=== PATIENT | female | born 1950 | race Caucasian/White ===

== ENCOUNTER 2016-11-09 18:24 | Inpatient (IN) | payer OTHER ==
[~2016-11-09] VITALS: Ht 152.4 cm; Wt 49.0 kg
[2016-11-09 19:22] LABS: HEMOGLOBIN 13.3 g/dL (11.7-16.4)
[2016-11-09] MEDS ORDERED: SODIUM CHLORIDE FLUSH 10ML SYR IVF ONE (19:30)
[2016-11-09] MEDS ORDERED: LORazepam 2 MG/ML, 1ML IVPush ONE ×2 (19:30→20:30)
[2016-11-09] MEDS ORDERED: SODIUM CHLORIDE 0.9% 1,000ML IVBOLUS ONE (19:30)
[2016-11-09] MEDS ORDERED: ALBUTEROL SULFATE 2.5 MG/3 ML NPPB ONE (19:30)
[2016-11-09] MEDS ORDERED: methylPREDNISolone SOD SUCC 125 MG/2 ML IVP ONE (19:30)
[2016-11-09 19:36] LABS: BLOOD UREA NITROGEN 22 mg/dL (7-18)
[2016-11-09] MEDS ORDERED: ALBUTEROL SULFATE 2.5 MG/3 ML ONE (19:44)
[2016-11-09 20:02] LABS: IS PT STATUS REG ER OR PRE ER? YES
[2016-11-09] MEDS ORDERED: ASPIRIN 81 MG TABLET CHEW PO ONE (20:30)
[2016-11-09] MEDS ORDERED: ENALAPRILAT 1.25 MG/ML, 2ML ONE (20:30)
[2016-11-09] MEDS ORDERED: ENALAPRILAT 1.25 MG/ML, 2ML IV ONE (20:30)
[2016-11-09] MEDS ORDERED: LORazepam 2 MG/ML, 1ML ONE (20:31)
[2016-11-09] MEDS ORDERED: ASPIRIN 81 MG TABLET CHEW ONE (20:31)
[2016-11-09] MEDS ORDERED: CEFD300C2 PO (20:57)
[2016-11-09] MEDS ORDERED: IPRA3AMP INH (20:57)
[2016-11-09] MEDS ORDERED: IBUP800T PO (20:57)
[2016-11-09] MEDS ORDERED: SENN-109 PO (20:57)
[2016-11-09] MEDS ORDERED: DOXY100C15 PO (20:57)
[2016-11-09] MEDS ORDERED: ACETAMINOPHEN 325 MG TABLET PO PRN (21:00)
[2016-11-09] MEDS: SODIUM CHLORIDE FLUSH 10ML SYR IVF SCH (21:00)
[2016-11-09] MEDS ORDERED: POLYETHYLENE GLYCOL 17 GM PACKET PO PRN (21:00)
[2016-11-09] MEDS ORDERED: DOCUSATE 100 MG CAPSULE PO PRN (21:00)
[2016-11-09] MEDS ORDERED: GUAIFENESIN/DM 200-20MG, 10ML UDC PO PRN (21:00)
[2016-11-09] MEDS ORDERED: FUROSEMIDE 20 MG/2 ML IV ONE (21:00)
[2016-11-09] MEDS ORDERED: MORPHINE SULFATE 4 MG/ML, 1ML IVPush PRN (21:00)
[2016-11-09] MEDS: INSULIN REGULAR 100 UNITS/ML, 3ML VIAL SQ-INSULIN SCH (21:00)
[2016-11-09] MEDS: ENOXAPARIN 40 MG/0.4 ML SQ SCH (21:00)
[2016-11-09] MEDS ORDERED: POTASSIUM CHLORIDE 20 MEQ TAB.ER.PRT ONE (22:32)
[2016-11-09] MEDS ORDERED: FUROSEMIDE 20 MG/2 ML ONE (22:32)
[2016-11-09] MEDS: POTASSIUM CHLORIDE 20 MEQ TAB.ER.PRT PO SCH (22:35)
[2016-11-09 23:27] VITALS: BP 153/98
[2016-11-10] MEDS: NICOTINE 7 MG/24 HR PATCH.TD24 TD SCH ×2 (00:46→21:02)
[2016-11-10] MEDS: CEFTRIAXONE PMX 1GM/50ML 50 ML IV SCH ×2 (00:47)
[2016-11-10] MEDS: DOXYCYCLINE 100 MG in DEXTROSE 5% 250 ML IV SCH ×2 (01:54→13:34)
[2016-11-10 03:04] VITALS: BP 147/94
[2016-11-10 03:18] VITALS: BP 153/98
[2016-11-10] MEDS ORDERED: OMNIPAQUE 350 MG/ML, 100ML BOTTLE ONE (04:44)
[2016-11-10] MEDS: ASPIRIN 325 MG TABLET EC PO SCH (05:31)
[2016-11-10] MEDS ORDERED: ALBUTEROL/IPRATROPIUM 2.5MG/0.5MG, 3 ML ONE (06:41)
[2016-11-10] MEDS: INSULIN REGULAR 100 UNITS/ML, 3ML VIAL SQ-INSULIN SCH ×4 (07:00→21:00)
[2016-11-10 07:10] LABS: IS PT STATUS REG ER OR PRE ER? NO
[2016-11-10 07:54] VITALS: BP 137/90
[2016-11-10] MEDS: SODIUM CHLORIDE FLUSH 10ML SYR IVF SCH ×2 (07:56→21:03)
[2016-11-10] MEDS: SENNA/DOCUSATE TABLET PO SCH (07:57)
[2016-11-10] MEDS: POTASSIUM CHLORIDE 20 MEQ TAB.ER.PRT PO SCH ×2 (07:57→17:41)
[2016-11-10] MEDS ORDERED: ALBUTEROL/IPRATROPIUM 2.5MG/0.5MG, 3 ML NEB SCH (09:00)
[2016-11-10] MEDS: ALBUTEROL/IPRATROPIUM 2.5MG/0.5MG, 3 ML NPPB SCH ×2 (09:00→21:00)
[2016-11-10] MEDS ORDERED: IBUPROFEN 800 MG TABLET PO SCH (09:00)
[2016-11-10] MEDS: LORazepam 2 MG/ML, 1ML IVPush PRN ×2 (13:29→21:02)
[2016-11-10 13:54] VITALS: BP 146/92
[2016-11-10] MEDS: PROPRANOLOL 20 MG TABLET PO SCH ×2 (15:06→22:10)
[2016-11-10] MEDS ORDERED: ALUMINUM/MAG/SIMETHICONE 30 ML UDC PO ONE (17:00)
[2016-11-10 19:21] VITALS: BP 92/55
[2016-11-10 19:37] VITALS: BP 135/85
[2016-11-10] MEDS: ONDANSETRON 2MG/ML, 2ML IVP PRN (20:56)
[2016-11-10] MEDS: FAMOTIDINE 20 MG TABLET PO SCH (21:02)
[2016-11-10] MEDS: HYDROcodone/APAP 5/325 TABLET PO PRN (21:02)
[2016-11-10] MEDS: ENOXAPARIN 40 MG/0.4 ML SQ SCH (21:02)
[2016-11-10] MEDS: DOXYCYCLINE 100MG TABLET PO SCH (21:03)
[2016-11-11 00:31] VITALS: BP 130/86
[2016-11-11] MEDS: CEFTRIAXONE PMX 1GM/50ML 50 ML IV SCH (00:59)
[2016-11-11] MEDS: PROPRANOLOL 20 MG TABLET PO SCH ×2 (06:09→15:21)
[2016-11-11] MEDS: ASPIRIN 325 MG TABLET EC PO SCH (06:09)
[2016-11-11] MEDS: INSULIN REGULAR 100 UNITS/ML, 3ML VIAL SQ-INSULIN SCH ×4 (07:00→20:57)
[2016-11-11 07:17] VITALS: BP 119/85
[2016-11-11] MEDS: ALBUTEROL/IPRATROPIUM 2.5MG/0.5MG, 3 ML NPPB SCH ×2 (07:25→19:50)
[2016-11-11] MEDS: SODIUM CHLORIDE FLUSH 10ML SYR IVF SCH ×2 (07:45→20:59)
[2016-11-11] MEDS: POTASSIUM CHLORIDE 20 MEQ TAB.ER.PRT PO SCH ×2 (07:45→18:07)
[2016-11-11] MEDS: FAMOTIDINE 20 MG TABLET PO SCH ×2 (07:46→20:59)
[2016-11-11] MEDS: FUROSEMIDE 40 MG TABLET PO SCH (07:46)
[2016-11-11] MEDS: DOXYCYCLINE 100MG TABLET PO SCH ×2 (07:47→20:59)
[2016-11-11] MEDS: SENNA/DOCUSATE TABLET PO SCH (07:47)
[2016-11-11] MEDS ORDERED: REGADENOSON 0.4 MG/5 ML SYRINGE ONE (10:00)
[2016-11-11 12:44] VITALS: BP 125/86
[2016-11-11] MEDS: ONDANSETRON 2MG/ML, 2ML IVP PRN (18:06)
[2016-11-11] MEDS: CARVEDILOL 3.125 MG TABLET PO SCH (18:07)
[2016-11-11 19:41] VITALS: BP 113/75
[2016-11-11] MEDS: NICOTINE 7 MG/24 HR PATCH.TD24 TD SCH (21:00)
[2016-11-11] MEDS: ENOXAPARIN 40 MG/0.4 ML SQ SCH (21:00)
[2016-11-12 01:13] VITALS: BP 102/56
[2016-11-12] MEDS: CEFTRIAXONE PMX 1GM/50ML 50 ML IV SCH (01:47)
[2016-11-12] MEDS: ASPIRIN 325 MG TABLET EC PO SCH (05:37)
[2016-11-12] MEDS: HYDROcodone/APAP 5/325 TABLET PO PRN (05:37)
[2016-11-12] MEDS: CARVEDILOL 3.125 MG TABLET PO SCH (05:37)
[2016-11-12 06:28] LABS: HEMOGLOBIN 15.2 g/dL (11.7-16.4)
[2016-11-12 06:34] LABS: BLOOD UREA NITROGEN 35 mg/dL (7-18)
[2016-11-12] MEDS: INSULIN REGULAR 100 UNITS/ML, 3ML VIAL SQ-INSULIN SCH ×2 (07:36→11:52)
[2016-11-12] MEDS: FAMOTIDINE 20 MG TABLET PO SCH (07:39)
[2016-11-12] MEDS: POTASSIUM CHLORIDE 20 MEQ TAB.ER.PRT PO SCH (07:39)
[2016-11-12] MEDS: FUROSEMIDE 40 MG TABLET PO SCH (07:39)
[2016-11-12] MEDS: SENNA/DOCUSATE TABLET PO SCH (07:40)
[2016-11-12] MEDS: DOXYCYCLINE 100MG TABLET PO SCH (07:40)
[2016-11-12] MEDS: SODIUM CHLORIDE FLUSH 10ML SYR IVF SCH (07:40)
[2016-11-12 07:46] VITALS: BP 115/79
[2016-11-12] MEDS ORDERED: GUAI5SYR PO (08:24)
[2016-11-12] MEDS ORDERED: AMOX1TAB61 PO (08:24)
[2016-11-12] MEDS ORDERED: PRED10TA PO (08:24)
[2016-11-12] MEDS ORDERED: LISI5TAB7 PO (08:24)
[2016-11-12] MEDS ORDERED: METH10TA6 PO (08:24)
[2016-11-12] MEDS ORDERED: ASPI-621 PO (08:24)
[2016-11-12] MEDS ORDERED: CARV3.1212 PO (08:24)
[2016-11-12] MEDS ORDERED: FURO20TA3 PO (08:24)
[2016-11-12] MEDS ORDERED: SPIR25TA3 PO (08:24)
[2016-11-12] MEDS: ALBUTEROL/IPRATROPIUM 2.5MG/0.5MG, 3 ML NPPB SCH (09:00)
[2016-11-12] MEDS ORDERED: LISINOPRIL 5 MG TABLET PO SCH (09:00)
== END 2016-11-12 16:58 | disposition home or self-care (01) | DRG 643 ==
LOC: SUATTDRO 20:34 → ED 20:36 → EDIP 20:50 → 3NE 23:24 → 4EST 11-10 15:56 → DCLOUNGE 11-12 15:08
PROVIDERS: ADMIT Family Medicine; ATTEND Family Medicine
PROC: HZ34ZZZ Individual Counseling for Substance Abuse Treatment, Interpersonal (ICD-10-PCS; principal; 2016-11-09)
DX: E05.20 Thyrotoxicosis with toxic multinodular goiter without thyrotoxic crisis or storm (principal); E43 Unspecified severe protein-calorie malnutrition; I24.8 Other forms of acute ischemic heart disease; I42.9 Cardiomyopathy, unspecified; J98.11 Atelectasis; R09.02 Hypoxemia; E87.6 Hypokalemia; F41.9 Anxiety disorder, unspecified; E11.9 Type 2 diabetes mellitus without complications; F17.210 Nicotine dependence, cigarettes, uncomplicated; I10 Essential (primary) hypertension; I34.0 Nonrheumatic mitral (valve) insufficiency; J44.9 Chronic obstructive pulmonary disease, unspecified; Z66 Do not resuscitate; Z79.82 Long term (current) use of aspirin; Z82.49 Family history of ischemic heart disease and other diseases of the circulatory system; Z86.73 Personal history of transient ischemic attack (TIA), and cerebral infarction without residual deficits; Z80.9 Family history of malignant neoplasm, unspecified; Z79.899 Other long term (current) drug therapy; Z71.41 Alcohol abuse counseling and surveillance of alcoholic
CPT/HCPCS: 36415; 71010; 71275; 76536; 78452; 80048; 82040; 82962; 83735; 83880; 84436; 84443; 84484; 85025; 85379; 85610; 93005; 93017; 93306; 94640; 96374; 96375; J0696; J1650; J1815; J2405; J2785; J7060; J7613; J7620; Q9967; A9502; C9898; J1940; J2060; J7512

== ENCOUNTER → 2017-07-16 | Outpatient (CLI) | payer OTHER ==
[~2017-07-16] MED LIST: AMOX1TAB61 PO; ASPI-621 PO; CARV3.1212 PO; CEFD300C37 PO; DOXY100C15 PO; FURO20TA3 PO; GUAI5SYR PO; IBUP-1223 PO; IPRA3AMP INH; LISI5TAB7 PO; METH10TA6 PO; PRED10TA PO; SENN-99 PO; SPIR25TA3 PO
== END | disposition home or self-care (01) ==
LOC: PETCFH 10:16
PROVIDERS: ATTEND Internal Medicine Cardiovascular Disease
DX: Z01.818 Encounter for other preprocedural examination (principal); I42.9 Cardiomyopathy, unspecified; E05.20 Thyrotoxicosis with toxic multinodular goiter without thyrotoxic crisis or storm; E04.2 Nontoxic multinodular goiter
CPT/HCPCS: 78472; A9560

== ENCOUNTER → 2017-07-29 | Outpatient (CLI) | payer OTHER | END | disposition home or self-care (01) | LOC: PETCFH 07:55 | PROVIDERS: ATTEND Surgery | DX: E05.20 Thyrotoxicosis with toxic multinodular goiter without thyrotoxic crisis or storm (principal) | CPT/HCPCS: 78013; A9516 ==

== ENCOUNTER → 2017-10-21 | Outpatient (CLI) | payer OTHER ==
[~2017-10-21] MED LIST changes: +ACET325C PO; +ASPI325T17 PO; +ATOR40TA78 PO; +CARV12.543 PO; +LOSA25TA5 PO; +MELO15TA24 PO; +METF500T4 PO; +SERT100T PO
[2017-10-21 12:06] LABS: CHLORIDE 109 mmol/L (98-107)
[2017-10-21 12:13] LABS: ALANINE AMINOTRANSFERASE 26 U/L (12-78); ALKALINE PHOSPHATASE 167 U/L (45-117); ANION GAP 6 mmol/L (5-15); BILIRUBIN,TOTAL 0.5 mg/dL (0.2-1.0); TOTAL PROTEIN 7.8 g/dL (6.4-8.2)
== END | disposition home or self-care (01) ==
LOC: STAR 10:31
PROVIDERS: ATTEND Surgery
DX: Z01.818 Encounter for other preprocedural examination (principal); R94.31 Abnormal electrocardiogram [ECG] [EKG]
CPT/HCPCS: 36415; 80053; 93005

== ENCOUNTER 2017-10-26 09:17 | Inpatient (IN) | payer OTHER ==
[2017-10-21 11:04] VITALS: BP 135/81
[~2017-10-26] VITALS: Ht 152.4 cm; Wt 59.0 kg
[2017-10-26] MEDS ORDERED: LACTATED RINGERS 1,000 ML IV SCH (09:39)
[2017-10-26] MEDS ORDERED: LIDOCAINE-MPF 1%, 2ML ONE (09:48)
[2017-10-26] MEDS ORDERED: LIDOCAINE 1%, 2ML SQ PRN (10:00)
[2017-10-26] MEDS ORDERED: MIDAZOLAM 1 MG/ML, 2ML ONE (11:02)
[2017-10-26] MEDS ORDERED: FENTANYL PF 250 MCG/5ML ONE (11:34)
[2017-10-26] MEDS ORDERED: KETAMINE 10 MG/ML, 20ML ONE ×2 (11:34→15:28)
[2017-10-26] MEDS ORDERED: GLYCOPYRROLATE 0.2MG/1ML, 5ML ONE ×2 (11:38→12:54)
[2017-10-26] MEDS ORDERED: PHENYLEPHRINE 10 MG/ML ONE (11:38)
[2017-10-26] MEDS ORDERED: OXYcodone 5 MG/5 ML ORAL.SOL UDC PO PRN ×2 (12:00→16:30)
[2017-10-26] MEDS ORDERED: ONDANSETRON 2MG/ML, 2ML IVPush PRN ×2 (12:00→16:30)
[2017-10-26] MEDS ORDERED: LABETALOL 5MG/ML, 20ML IV PRN (12:00)
[2017-10-26] MEDS ORDERED: PROMETHAZINE 12.5 MG SUPP PR PRN (12:00)
[2017-10-26] MEDS ORDERED: HYDROcodone/APAP 7.5-325MG/15ML UDC PO PRN (12:00)
[2017-10-26] MEDS ORDERED: HYDROmorphone 1 MG/ML, 1ML IV PRN (12:00)
[2017-10-26] MEDS ORDERED: PROMETHAZINE 25 MG/ML, 1ML IV PRN (12:00)
[2017-10-26] MEDS ORDERED: hydrALAzine 20 MG/ML, 1ML IV PRN ×2 (12:00→16:30)
[2017-10-26] MEDS ORDERED: ACETAMINOPHEN 325 MG TABLET PO PRN (12:00)
[2017-10-26] MEDS ORDERED: SUCCINYLCHOLINE 20 MG/ML, 10ML ONE (12:54)
[2017-10-26] MEDS ORDERED: PROPOFOL 10 MG/ML, 20ML ONE (12:54)
[2017-10-26] MEDS ORDERED: CEFAZOLIN 1,000 MG ONE (12:54)
[2017-10-26] MEDS ORDERED: NEOSTIGMINE 1 MG/ML, 10ML ONE (12:54)
[2017-10-26] MEDS ORDERED: ONDANSETRON 2MG/ML, 2ML ONE ×2 (12:54→15:51)
[2017-10-26] MEDS ORDERED: DEXAMETHASONE 4 MG/ML, 1ML ONE (12:54)
[2017-10-26] MEDS ORDERED: ROCURONIUM 10 MG/ML,10ML ONE ×3 (12:54→15:51)
[2017-10-26] MEDS ORDERED: OXYcodone 5 MG/5 ML ORAL.SOL UDC ONE (13:20)
[2017-10-26] MEDS ORDERED: ACETAMINOPHEN 650 MG/20.3 ML UDC ONE (13:20)
[2017-10-26] MEDS ORDERED: FENTANYL PF 100 MCG/2ML ONE ×2 (13:20→15:20)
[2017-10-26] MEDS: FENTANYL PF 100 MCG/2ML IV PRN ×3 (13:22→13:49)
[2017-10-26] MEDS ORDERED: LACTATED RINGERS 500 ML IVBOLUS PRN (14:30)
[2017-10-26] MEDS ORDERED: morphine SULFATE 10 MG/ML, 1ML IV PRN (14:30)
[2017-10-26] MEDS ORDERED: ONDANSETRON 2MG/ML, 2ML IV PRN (14:30)
[2017-10-26] MEDS: ASPIRIN MC SCH ×2 (15:00→23:00)
[2017-10-26] MEDS: ACETAMINOPHEN MC SCH ×2 (15:00→23:00)
[2017-10-26] MEDS ORDERED: MIDAZOLAM 1 MG/ML, 2ML IV PRN (16:30)
[2017-10-26] MEDS ORDERED: LORazepam 2 MG/ML, 1ML IVPush PRN (16:30)
[2017-10-26] MEDS ORDERED: EPHEDRINE 50 MG/ML, 1ML IVPush PRN (16:30)
[2017-10-26] MEDS ORDERED: FENTANYL PF 100 MCG/2ML IV PRN (16:30)
[2017-10-26] MEDS ORDERED: HYDROmorphone 2 MG/ML, 1ML ONE (16:44)
[2017-10-26] MEDS: HYDROmorphone 1 MG/ML, 1ML IV PRN ×2 (16:45→17:15)
[2017-10-26 18:54] LABS: ALBUMIN 3.4 g/dL (3.4-5.0); CALCIUM 8.3 mg/dL (8.5-10.1)
[2017-10-26] MEDS: CARVEDILOL 12.5 MG TABLET PO SCH (19:28)
[2017-10-26] MEDS: metFORMIN 500 MG TABLET PO SCH (19:32)
[2017-10-26] MEDS ORDERED: ATORVASTATIN 40 MG TABLET PO SCH (21:00)
[2017-10-26] MEDS: SPIRONOLACTONE 25 MG TABLET PO SCH (21:01)
[2017-10-26 21:02] VITALS: BP 137/95
[2017-10-26] MEDS: HYDROcodone/APAP 5/325 TABLET PO PRN (21:09)
[2017-10-27 00:01] VITALS: BP 115/66
[2017-10-27] MEDS: HYDROcodone/APAP 5/325 TABLET PO PRN ×3 (01:36→14:57)
[2017-10-27 01:49] LABS: ALBUMIN 3.3 g/dL (3.4-5.0); CALCIUM 8.1 mg/dL (8.5-10.1)
[2017-10-27 02:51] VITALS: BP 111/55
[2017-10-27] MEDS: CARVEDILOL 12.5 MG TABLET PO SCH (06:29)
[2017-10-27 06:37] LABS: ALBUMIN 3.3 g/dL (3.4-5.0); CALCIUM 7.8 mg/dL (8.5-10.1)
[2017-10-27 07:27] VITALS: BP 112/68
[2017-10-27] MEDS: metFORMIN 500 MG TABLET PO SCH (08:18)
[2017-10-27] MEDS: SPIRONOLACTONE 25 MG TABLET PO SCH (08:18)
[2017-10-27] MEDS ORDERED: SERTRALINE 100MG TABLET PO SCH (09:00)
[2017-10-27] MEDS ORDERED: MELOXICAM 15 MG TABLET PO SCH (09:00)
[2017-10-27] MEDS ORDERED: LOSARTAN 25MG TABLET PO SCH (09:00)
[2017-10-27] MEDS ORDERED: FUROSEMIDE 20 MG TABLET PO SCH (09:00)
[2017-10-27] MEDS ORDERED: CALCIUM CARBONATE 500 MG TAB.CHEW PO ONE (09:30)
[2017-10-27] MEDS: CALCIUM CARBONATE 500 MG TAB.CHEW PO SCH ×2 (09:30→11:54)
[2017-10-27 11:55] VITALS: BP 128/63
[2017-10-27 12:17] LABS: ALBUMIN 3.3 g/dL (3.4-5.0); CALCIUM 7.9 mg/dL (8.5-10.1)
[2017-10-27] MEDS ORDERED: HYDR-3237 PO (13:21)
[2017-10-27] MEDS ORDERED: CALC200T3 PO (13:23)
[2017-10-27] MEDS ORDERED: LEVO125T PO (13:25)
[2017-10-27 14:57] VITALS: BP 119/64
[2017-10-27] MEDS ORDERED: CALCIUM CARBONATE 500 MG TAB.CHEW PO SCH (16:00)
== END 2017-10-27 15:35 | disposition home or self-care (01) | DRG 625 ==
LOC: OUT 09:17 → 4NOR 14:16 → OUT 14:20 → 4NOR 14:21 → DCLOUNGE 10-27 15:10
PROVIDERS: ADMIT Surgery; ATTEND Surgery
PROC: 0GSR0ZZ Reposition Parathyroid Gland, Open Approach (ICD-10-PCS; 2017-10-26)
PROC: 4A11X4G Monitoring of Peripheral Nervous Electrical Activity, Intraoperative, External Approach (ICD-10-PCS; 2017-10-26)
PROC: 0HC4XZZ Extirpation of Matter from Neck Skin, External Approach (ICD-10-PCS; 2017-10-26)
PROC: 4A11X4G Monitoring of Peripheral Nervous Electrical Activity, Intraoperative, External Approach (ICD-10-PCS; 2017-10-26)
PROC: 0GTK0ZZ Resection of Thyroid Gland, Open Approach (ICD-10-PCS; principal; 2017-10-26 11:30)
DX: E05.20 Thyrotoxicosis with toxic multinodular goiter without thyrotoxic crisis or storm (principal); I50.43 Acute on chronic combined systolic (congestive) and diastolic (congestive) heart failure; S10.93XA Contusion of unspecified part of neck, initial encounter
CPT/HCPCS: 36415; 82040; 82310; 82962; 88307; 88331; 88334; J0690; J1100; J1170; J2250; J2405; J2704; J2710; J3010; J3490; C1760; J0330; J2370; J7120